=== PATIENT | male | born 1960 | race Caucasian/White ===

== ENCOUNTER 2019-04-11 08:19 | Outpatient (CLI) | payer BC, MEDICARE, SELFPAY ==
[2019-04-11 08:45] LABS: Basophils % 0.4 %; Eosinophils # 0.1 10^3/uL (0.0-0.8); Hematocrit 40.8 % (42.0-52.0); Hemoglobin 14.5 g/dL (11.7-16.6); Lymphocytes # 2.5 10^3/uL (0.8-4.8); Lymphocytes % 36.7 %; Mean Corpuscular HGB Conc 35.5 g/dL (30.0-36.0); Mean Corpuscular Hemoglobin 32.6 pg (28.0-34.0); Mean Corpuscular Volume 91.7 fL (80-94); Mean Platelet Volume 8.7 fL (7.4-10.4); Monocytes # 0.4 10^3/uL (0.2-0.9); Neutrophils # 3.7 10^3/uL (1.8-7.7); Neutrophils % 54.3 %; Nucleated Red Blood Cells % 0 %; Platelet Count 190 10^3/cmm (130-400); Red Blood Count 4.45 10^6/uL (4.1-5.3); Red Cell Distribution Width 12.2 % (12.1-15.1); White Blood Count 6.9 10^3/uL (4.0-10.0)
[2019-04-11 09:01] LABS: Alanine Aminotransferase 24 U/L (0-41); Albumin Level 5.5 g/dL (3.5-5.2); Alkaline Phosphatase 58 IU/L (40-130); Anion Gap 15.7 (5-19); Aspartate Amino Transferase 23 U/L (0-40); Blood Urea Nitrogen 15 mg/dL (6-20); Calcium 10.6 mg/Dl (8.6-10.0); Carbon Dioxide 24 mmol/L (22-29); Chloride 100 mmol/L (98-107); Gamma Glutamyl Transferase 31 U/L (61-); Globulin 1.4 g/dL (1.3-4.6); Glomerular Filtration Rate 57.1 mL/min (90-130); Glucose 123 mg/dL (74-109); Potassium 4.7 mmol/L (3.5-5.1); Sodium 135 mmol/L (136-145); Total Bilirubin 1.1 mg/dL (0.15-1.2); Total Protein 6.9 g/dL (6.6-8.7)
== END 2019-04-11 08:20 | disposition home or self-care (01) ==
LOC: LAB 08:24
PROVIDERS: Family Provider Nurse Practitioner Family; Visit Provider Internal Medicine Gastroenterology
DX: C22.0 Liver cell carcinoma (principal)
CPT/HCPCS: 80053; 80197; 82977; 85025

== ENCOUNTER 2019-07-23 12:28 | Outpatient (CLI) | payer BC, MEDICARE, SELFPAY ==
--- NOTE | 2019-07-23 | MR_ITS ---
WS: [id number] INDICATION: Liver transplant TECHNIQUE: MRI of the abdomen without and with gadolinium enhancement. Axial T2, coronal 2-D fiesta, dual Echo, axial 2-D fiesta, axial T1 fat sat, post gadolinium imaging was obtained. FINDINGS: Comparison CT April 05, 2014 Presumed interval liver transplant since 2013. Liver is normal in appearance. Normal portal vein and splenic vein. No intrahepatic biliary duct dilatation. Normal spleen. Pancreas is normal in appearanc e. Normal GE junction. Mild perinephric edema can be seen with renal insufficiency. Adrenal glands ar e normal. Upper abdominal aorta is normal. No abdominal lymphadenopathy. No enhancing lesions within the liver. Small left renal cyst measuring 7 mm. MR/MR abdomen wo/w con* [id number] IMPRESSION: 1. Transplant liver is normal in appearance. No intrahepatic biliary ductal di latation. 2. No suspicious enhancing hepatic lesions. 3. 7 mm left renal cyst. 4. Normal pancreas. No intrahepatic biliary ductal dilatation.
== END 2019-07-23 12:29 | disposition home or self-care (01) ==
PROVIDERS: Family Provider Nurse Practitioner Family; PCP Family Medicine; Visit Provider Internal Medicine Gastroenterology
DX: Z94.4 Liver transplant status (principal); Z85.05 Personal history of malignant neoplasm of liver; Q61.01 Congenital single renal cyst
CPT/HCPCS: 74183; A9579

== ENCOUNTER 2019-10-22 08:42 | Outpatient (CLI) | payer BC, MEDICARE, SELFPAY ==
[2019-10-22 09:34] LABS: Hematocrit 41.3 % (42.0-52.0); Hemoglobin 14.8 g/dL (11.7-16.6); Mean Corpuscular HGB Conc 35.8 g/dL (30.0-36.0); Mean Corpuscular Hemoglobin 33.2 pg (28.0-34.0); Mean Corpuscular Volume 92.6 fL (80-94); Mean Platelet Volume 8.5 fL (7.4-10.4); Platelet Count 207 10^3/cmm (130-400); Red Blood Count 4.46 10^6/uL (4.1-5.3); Red Cell Distribution Width 12.3 % (12.1-15.1); White Blood Count 6.6 10^3/uL (4.0-10.0)
[2019-10-22 09:45] LABS: Absolute Eosinophils 0.1 10^3/cmm (0.0-0.7); Absolute Neutrophil 3.9 10^3/cmm (1.4-6.5); Absolute Segmented Neutrophil 3.8 10/cmm (1.6-7.1); Band Neutrophils Absolute 0.1 10^3/cmm (0.0-1.2); Eosinophils 3 %; Lymphocytes 28 %; Lymphocytes Absolute 2.1 10^3/cmm (1.2-3.4); Monocytes Absolute 0.4 10^3/cmm (0.1-0.6); Platelet Estimate Normal (Normal); Segmented Neutrophils 57 %; Total Cells Counted 100 (0-100)
[2019-10-22 09:47] LABS: Alanine Aminotransferase 21 U/L (0-41); Albumin Level 4.5 g/dL (3.5-5.2); Alkaline Phosphatase 58 IU/L (40-130); Anion Gap 13.6 (5-19); Aspartate Amino Transferase 18 U/L (0-40); Blood Urea Nitrogen 20 mg/dL (6-20); Calcium 9.8 mg/dL (8.5-10.5); Carbon Dioxide 25 mmol/L (22-29); Chloride 101 mmol/L (98-107); Gamma Glutamyl Transferase 30 U/L (8-61); Globulin 2.8 g/dL (1.3-4.6); Glomerular Filtration Rate 56.9 mL/min (90-130); Glucose 115 mg/dL (65-115); Osmolality Calculated 277 mOsm/kg (285-295); Potassium 4.6 mmol/L (3.5-5.1); Sodium 135 mmol/L (136-145); Total Protein 7.3 g/dL (6.6-8.7)
== END 2019-10-22 08:43 | disposition home or self-care (01) ==
PROVIDERS: PCP Family Medicine; Visit Provider Internal Medicine Gastroenterology
DX: Z94.4 Liver transplant status (principal); Z79.899 Other long term (current) drug therapy
CPT/HCPCS: 80053; 80197; 82977; 85007; 85027

== ENCOUNTER 2020-07-22 07:24 | Outpatient (CLI) | payer BC, MEDICARE, SELFPAY ==
[2020-07-22 08:09] LABS: Basophils % 0.4 %; Eosinophils # 0.2 10^3/uL (0.0-0.8); Eosinophils % 3.1 %; Hematocrit 43.3 % (42.0-52.0); Hemoglobin 15.7 g/dL (11.7-16.6); Lymphocytes # 2.2 10^3/uL (0.8-4.8); Lymphocytes % 30.3 %; Mean Corpuscular HGB Conc 36.3 g/dL (30.0-36.0); Mean Corpuscular Hemoglobin 33.4 pg (28.0-34.0); Mean Corpuscular Volume 92.1 fL (80-94); Mean Platelet Volume 8.4 fL (7.4-10.4); Monocytes # 0.6 10^3/uL (0.2-0.9); Monocytes % 7.6 %; Neutrophils # 4.28 10^3/uL (1.8-7.7); Neutrophils % 58.5 %; Nucleated Red Blood Cells % 0 %; Platelet Count 205 10^3/cmm (130-400); White Blood Count 7.3 10^3/uL (4.0-10.0)
[2020-07-22 08:40] LABS: Alanine Aminotransferase 22 U/L (0-41); Albumin Level 4.5 g/dL (3.5-5.2); Alkaline Phosphatase 56 IU/L (40-130); Anion Gap 14.6 (5-19); Aspartate Amino Transferase 20 U/L (0-40); Blood Urea Nitrogen 19 mg/dL (6-20); Calcium 9.2 mg/dL (8.5-10.5); Carbon Dioxide 24 mmol/L (22-29); Chloride 97 mmol/L (98-107); Gamma Glutamyl Transferase 21 U/L (8-61); Globulin 2.4 g/dL (1.3-4.6); Glomerular Filtration Rate 76.7 mL/min (90-130); Glucose 117 mg/dL (65-115); Osmolality Calculated 275 mOsm/kg (285-295); Potassium 4.6 mmol/L (3.5-5.1); Sodium 131 mmol/L (136-145); Total Protein 6.9 g/dL (6.6-8.7)
== END 2020-07-22 07:25 | disposition home or self-care (01) ==
LOC: LAB 07:27
PROVIDERS: PCP Family Medicine; Visit Provider Internal Medicine Gastroenterology
DX: Z94.4 Liver transplant status (principal); Z79.899 Other long term (current) drug therapy
CPT/HCPCS: 36415; 80053; 80197; 82977; 85025

== ENCOUNTER 2020-08-06 09:10 | Outpatient (CLI) | payer BC, MEDICARE, SELFPAY ==
--- NOTE | 2020-08-06 09:30 | MR_ITS ---
WS: [id number] INDICATION: Liver transplant TECHNIQUE: MRI of the abdomen without and with gadolinium enhancement. Axial T2, coronal 2-D fiesta, dual Echo, axial 2-D fiesta, axial T1 fat sat, post gadolinium imaging was obtained. COMPARISON: Comparison CT April 05, 2014. MRI July 23, 2019 FINDINGS: Hepatic transplant. Transplant liver is normal in appearance. Normal portal vein and splenic vein. No intrahepatic biliary duct dilatation. Normal spleen. Pancreas is normal in appearance. No suspicious enhancing hepatic lesions. Normal GE junction. Mild perinephric edema can be seen with renal insufficiency similar to previous. Adrenal glands are normal. Upper abdominal aorta is normal. No abdominal lymphadenopathy. Small left renal cyst measuring 7 mm. Partially visualized lumbar fusion. MR/MR abdomen wo/w con* [id number] IMPRESSION: 1. Transplant liver is normal in appearance. 2. Portal vein and splenic vein are patent. No intrahepatic biliary ductal dil atation. 3. No suspicious enhancing hepatic lesions. 4. Small left renal cyst unchanged.
[2020-08-06] MEDS: gadobenate dimeglumine 20 mL vial IV (10:24)
== END 2020-08-06 09:11 | disposition home or self-care (01) ==
PROVIDERS: PCP Family Medicine; Visit Provider Internal Medicine Gastroenterology
DX: Z85.05 Personal history of malignant neoplasm of liver (principal); Z94.4 Liver transplant status; N28.1 Cyst of kidney, acquired
CPT/HCPCS: 74183; A9577

== ENCOUNTER 2021-10-11 08:38 | Outpatient (CLI) | payer BC, MEDICARE, SELFPAY ==
--- NOTE | 2021-10-11 08:49 | MR_ITS ---
WS: [id number] MRI ABDOMEN with and without CONTRAST. COMPARISON: 08/06/2020 Multiplanar, multisequence imaging is performed with and without contrast. ProHance 17 mL IV. No pleural effusions or ascites. Heart is normal size. Transplanted liver is normal size measuring approximately 13 cm in length. No significant fatty repla cement. The margins of the liver are smooth. No mass or intrahepatic duct dilatation. The portal vein is normally enhancing. No soft tissue masses identified. No lymph nodes in the carl hepatis. Postsurgical clips are noted near the carl hepatis and precaval. Mild perinephric stranding around each kidney. Nonenhancing 10 mm cyst mid LEFT kidney. Normal size s pleen. Negative pancreas. MR/MR abdomen wo/w con* [id number] IMPRESSION: 1. Normal appearance of the transplanted liver. No mass or bile duct dilatatio n. 2. Normal portal vein. 3. No ascites, pleural effusion or adenopathy. 4. Stable 10 mm LEFT renal cyst.
== END 2021-10-11 08:39 | disposition home or self-care (01) ==
PROVIDERS: PCP Family Medicine; Visit Provider Internal Medicine Gastroenterology
DX: Z94.4 Liver transplant status (principal); Z85.05 Personal history of malignant neoplasm of liver; Z79.899 Other long term (current) drug therapy
CPT/HCPCS: 74183

== ENCOUNTER 2021-10-12 08:01 | Outpatient (CLI) | payer BC, MEDICARE, SELFPAY ==
[2021-10-12 08:16] LABS: Basophils # 0.1 10^3/uL (0.0-0.1); Basophils % 0.6 %; Eosinophils # 0.2 10^3/uL (0.0-0.8); Hematocrit 43.3 % (42.0-52.0); Hemoglobin 15.8 g/dL (11.7-16.6); Lymphocytes # 2.4 10^3/uL (0.8-4.8); Lymphocytes % 29.7 %; Mean Corpuscular HGB Conc 36.5 g/dL (30.0-36.0); Mean Corpuscular Hemoglobin 32.7 pg (28.0-34.0); Mean Corpuscular Volume 89.6 fl (80-94); Mean Platelet Volume 8.3 fL (7.4-10.4); Monocytes # 0.5 10^3/uL (0.2-0.9); Monocytes % 5.7 %; Neutrophils # 4.92 10^3/uL (1.8-7.7); Neutrophils % 60.6 %; Nucleated Red Blood Cells % 0 %; Platelet Count 203 10^3/cmm (130-400); Red Blood Count 4.83 10^6/uL (4.1-5.3); Red Cell Distribution Width 12.1 % (12.1-15.1); White Blood Count 8.1 10^3/uL (4.0-10.0)
[2021-10-12 08:45] LABS: Alanine Aminotransferase 20 U/L (0-41); Albumin Level 4.2 g/dL (3.5-5.2); Alkaline Phosphatase 66 IU/L (40-130); Anion Gap 15.4 (5-19); Aspartate Amino Transferase 18 U/L (0-40); Blood Urea Nitrogen 12 mg/dL (6-20); Carbon Dioxide 23 mmol/L (22-29); Chloride 98 mmol/L (98-107); Globulin 2.6 g/dL (1.3-4.6); Glomerular Filtration Rate 68.5 mL/min (90-130); Glucose 152 mg/dL (65-115); Osmolality Calculated 277 mOsm/kg (285-295); Potassium 4.4 mmol/L (3.5-5.1); Sodium 132 mmol/L (136-145); Total Bilirubin 0.8 mg/dL (0.15-1.2); Total Protein 6.8 g/dL (6.6-8.7)
[2021-10-12 09:25] LABS: Gamma Glutamyl Transferase 23 U/L (8-61)
== END 2021-10-12 08:02 | disposition home or self-care (01) ==
PROVIDERS: PCP Family Medicine; Visit Provider Internal Medicine Gastroenterology
DX: Z94.4 Liver transplant status (principal); Z79.899 Other long term (current) drug therapy
CPT/HCPCS: 80053; 80197; 82977; 85025

== ENCOUNTER 2022-06-26 08:17 | Outpatient (CLI) | payer BC, MEDICARE, SELFPAY ==
--- NOTE | 2022-06-26 08:32 | MR_ITS ---
WS: [id number] MRI LUMBAR SPINE NONCONTRAST TECHNIQUE: Sagittal T1, T2 and STIR imaging. Axial T1 and T2 imaging. CLINICAL INFORMATION: LUMBAR RADICULOPATHY COMPARISON: MRI 2013] FINDINGS: Mild lumbar curve. No acute compression. Mild central canal stenosis T11-T12 with mild bilateral fora janeth narrowing unchanged from 2013. L1-L2: Mild disc osteophytic ridging. Mild central canal stenosis. Mild facet arthropathy. Moderate L EFT foraminal narrowing. L2-L3: Disc osteophyte complex with moderate central canal stenosis progressed compared to previous. .Mild facet arthropathy. Moderate RIGHT foraminal narrowing. L3-L4: Pedicle screw fixation with interbody fusion. Mild facet arthropathy. Spinal canal and foramen are patent. Laminectomy defects. This is new from previous. L4-L5: Disc osteophyte protrusion with severe central canal stenosis. This is progressed compared to previous. Prominent epidural fat contributes to stenosis. Moderate facet arthropathy. Slight impingem ent on traversing RIGHT L5 nerve root. Moderate RIGHT foraminal narrowing. L5-S1: Mild disc bulging with mild to moderate central canal stenosis. Advanced facet arthropathy wit h small facet effusions. Mild RIGHT foraminal narrowing. Visualized pelvic bony structures: Normal. Paravertebral soft tissues: Normal. MR/MR lumbar spine wo con* [id number] IMPRESSION: 1. Mild Lumbar curve. No acute compression. 2. Progressed moderate central canal stenosis L2-L3. Progressed severe stenosi s L4-L5 due to RIGHT pericentral disc bulging in combination with facet arthrop athy and prominent dorsal epidural fat. 3. Rjmr-dm-[id number] central canal stenosis L5-S1 progressed compared to previo us. 4. Laminectomy defects at L3-L4 new from previous. Spinal canal is patent at t his level. 5. Moderate RIGHT L2-L3 and moderate RIGHT L4-L5 foraminal narrowing. 6. Advanced facet arthropathy L5-S1 with small facet effusions. Mild RIGHT L5- S1 foraminal narrowing. Slight
== END 2022-06-26 08:18 | disposition home or self-care (01) ==
LOC: RAD 08:21
PROVIDERS: PCP Family Medicine; Visit Provider Family Medicine
DX: M54.16 Radiculopathy, lumbar region (principal); M48.061 Spinal stenosis, lumbar region without neurogenic claudication; M48.07 Spinal stenosis, lumbosacral region; M47.817 Spondylosis without myelopathy or radiculopathy, lumbosacral region
CPT/HCPCS: 72148

== ENCOUNTER → 2022-06-27 08:18 | Outpatient (BNVA) | payer BC, MEDICARE, SELFPAY | PROVIDERS: PCP Family Medicine; Referring Provider Family Medicine; Visit Provider Orthopaedic Surgery | DX: M25.78 Osteophyte, vertebrae (principal); Z96.89 Presence of other specified functional implants | CPT/HCPCS: 72110 ==

== ENCOUNTER 2022-07-14 08:34 | Day surgery (SDC) | payer BC, MEDICARE, SELFPAY ==
[2022-07-07 09:32] VITALS: BMI 35.4
--- NOTE | 2022-07-07 09:54 | ANES.PREANE2 ---
Pre-Anesthetic Assessment Height/Weight: Height 1.75 m Weight 108.862 kg Operation Date: 07/14/22 10:30 Proposed Procedures p Lumbar Spine Decompression:RT Side L4/5 L5/S1 [id number](Right) - Santos Fay, DO Familial anesthetic complications: None Social Tobacco and No alcohol Exam alert, oriented x 3, clear to auscultation bilaterally and regular rate & rhythm Airway Mallampati: Class III Dentition: other (no teeth) Pulmonary None reported CV/HEM Hypertension Hepatic Liver transplant d/t Liver cancer 5 years - takes prograff as anti-rejection med GI None reported Metabolic None reported Musc/skel Lower Back Pain Neuropsych None reported Anesthetic Plan ASA status: 3 Anesthesia: General Risk of > 500 ml blood loss (7ml/kg in children): No Medications/Allergies Home Medications Medication Instructions Recorded Confirmed Last Taken Type amlodipine 10 mg tablet 10 mg PO DAILY 06/27/22 07/07/22 07/07/22 History aspirin 81 mg capsule 81 mg PO DAILY 06/27/22 07/07/22 07/07/22 History atorvastatin 20 mg tablet 20 mg PO DAILY 06/27/22 07/07/22 07/07/22 History hydrochlorothiazide 25 mg tablet 25 mg PO DAILY 06/27/22 07/07/22 07/07/22 History hydrocodone 7.5 mg-acetaminophen 1 tab PO Q8H 07/07/22 07/07/22 07/07/22 History 325 mg tablet Allergies Allergy/AdvReac Type Severity Reaction Status Date / Time No Known Allergies Allergy Verified 07/07/22 09:29 Data Anesthesia 07/07/22 09:45 Cardiac Studies: No Data to Display
[2022-07-07 10:37] LABS: Anion Gap 17.6 (5-19); Blood Urea Nitrogen 13 mg/dL (8-23); Calcium 9.5 mg/dL (8.5-10.5); Carbon Dioxide 23 mmol/L (22-29); Chloride 96 mmol/L (98-107); Creatinine Clr Calc Pharmacy 95.5164; Glomerular Filtration Rate 76.2 mL/min (90-130); Glucose 93 mg/dL (65-115); Osmolality Calculated 274 mOsm/kg (285-295); Potassium 4.6 mmol/L (3.5-5.1); Sodium 132 mmol/L (136-145)
[2022-07-14] VITALS (7 sets, daily range): BP systolic 104–150; BP diastolic 71–99; PULSE 72–89; RESP 13–20; TEMP 36.1–36.9; O2SAT 95–98
[2022-07-14] MEDS: sodium chloride 0.9% 1,000 ML 30 ML IV (08:54)
--- NOTE | 2022-07-14 10:03 | PC.NURSE ---
Restroom- client up to restroom to void. family at bedside.
--- NOTE | 2022-07-14 10:24 | W.PM.OPSUD ---
Surgery/Procedure H&P Update DATE OF PROCEDURE: July 14, 2022 DATE H&P PERFORMED: 06/27/22 H&P UPDATE INFORMATION: I have reviewed H&P completed within last 30 days, I have examined patient prior to procedure and No changes to prior documentation PREOP DIAGNOSIS: Lumbar stenosis PLANNED PROCEDURE: Operation Date: 07/14/22 10:10 Proposed Procedures p Lumbar Spine Decompression:RT Side L4/5 L5/S1 [id number](Right) - Santos Fay DO
[2022-07-14] MEDS: midazolam 1 mg/mL INJ 2 mL 2 MG IVP (10:25)
--- NOTE | 2022-07-14 10:45 | P.ANESUD_ITS ---
Pre-Anesthetic Update Pre-Anesthetic Assessment: Date of Surgery/Procedure: 07/14/22 Preop Jennifer gnosis: Lumbar stenosis Proposed Procedure: Operation Date: 07/14/22 10:10 Proposed Procedures p Lumbar Spine Decompression:RT Side L4/5 L5/S1 [id number](Right) - Santos Fay, DO Any changes to Pre-Anesthetic Assessment?: No Last Intake: Intake Last Liquid Date 07/13/22 Last Liquid Time 21:00 Last Solid Date 07/13/22 Last Solid Time 21:00 Vitals: Temperature 98.4 F 07/14/22 08:49 Temperature Source Temporal Artery S can 07/14/22 08:49 Pulse Rate 89 07/14/22 08:49 Respiratory Rate 18 07/14/22 08:49 Blood Pressure 139/99 07/14/22 08:49 Blood Pressure Nayeli n 112 07/14/22 08:49 Pulse Oximetry 97 07/14/22 08:49 Oxygen Delivery Me thod 07/14/22 08:49 Cardiac Studies: No Data to Display
[2022-07-14] MEDS: ceFAZolin 2,000 MG in sodium chloride 0.9% (plus) 50 ML 100 MG IV (10:51)
[2022-07-14] MEDS: lidocaine-epi 1% 20 mL INJ INJECTION (11:56)
--- NOTE | 2022-07-14 12:40 | XR_ITS ---
WS: [id number] EXAMINATION: XR lumbar spine 1V [id number] REASON FOR EXAM: C-arm fluoroscopy COMPARISON: None available. ORDER DATE: 07/14/2022 12:41 PM FINDINGS: There has been prior lumbar fusion changes correlate with the previous study on 06/27/2022 surgical in strumentation superimposes the L5 vertebral body.. Total fluoroscopy time is 14.5 seconds XR/XR lumbar spine 1V [id number] IMPRESSION: Postoperative C-arm views.
--- NOTE | 2022-07-14 12:56 | P.OP_ITS ---
Operative Report Date of procedure: July 14, 2022 Pre-op diagnosis: Preop Diagnosis Lumbar stenosis with neurogenci claudication Post-op diagnosis: same Procedure done: 1. L4/5 laminectomy with partial facetectomy 2. L5/S1 lamiectomy with partial facetectomy Surgeon: Santos Fay Mason Tender Restoration Labor: none Estimated blood loss (mL): 20 Procedure: 1. L4/5 laminectomy with partial facetectomy 2. L5/S1 lamiectomy with partial facetectomy Patient is brought to the operative suite. After undergoing anesthesia they are placed in the prone position. All areas of impingement are well padded. Patient is then prepped and draped in the normal sterile fashion. A skin incision is made over the L4/5 level. This is confirmed under c-arm guidance. A series of dilators are passed and the tubular retractor is docked on the L4 lamina. A bovie is used to clear the soft tissue off the lamina and the L 4/5 facet joint. A high speed maría elena is then used to perform the laminectomy and take down the medial aspect of the L 4/5 facet joint. A kerrison rongeure was then used to take down the remaining lamina and smooth the edge of the laminectomy up to the point where the ligamentum flavum attaches. Attention was then brought to the medial aspect of the facet joint. The remaining medial aspect of the superior and inferior aspect of the facet joint were taken down with the kerrison from the pedicle of L4 to L 5. The facet joint had significant hypertrophy. Attention was then brought to the Ligamentum Flavum. The ligament was taken down from the lamina of L4 to L5 and out medially to the remaining facet joint. The ligament was thick. The dura was then exposed. The dura was in good repair. The L4 nerve was then traced with a curette out the L4/5 foramen and found to be adequately decompressed. The L5 nerve was traced with a curette around the L5 pedicle. The lateral recess was opened with a kerrison helping to further decompress the L5 nerve. Wound is then irrigated copiously with saline and surgiflo is used to stop any bleeding. The tubular retractor is removed and the A skin incision is made over the L5/S1 level. This is confirmed under c-arm guidance. A series of dilators are passed and the tubular retractor is docked on the L5 lamina. A bovie is used to clear the soft tissue off the lamina and the L 5/S1 facet joint. A high speed maría elena is then used to perform the laminectomy and take down the medial aspect of the L 5/S1 facet joint. A kerrison rongeure was then used to take down the remaining lamina and smooth the edge of the laminectomy up to the point where the ligamentum flavum attaches. Attention was then brought to the medial aspect of the facet joint. The remaining medial aspect of the superior and inferior aspect of the facet joint were taken down with the kerrison from the pedicle of L5 to S1. The facet joint had significant hypertrophy. Attention was then brought to the Ligamentum Flavum. The ligament was taken down from the lamina of L5 to s1 and out medially to the remaining facet joint. The ligament was scarred to dura. The dura was then exposed. The dura was in good repair. The L5 nerve was then traced with a curette out the L5/S1 foramen and found to be adequately decompressed. The S1 nerve was traced with a curette around the S1 pedicle. The lateral recess was opened with a kerrison helping to further decompress the S1 nerve. Wound is then irrigated copiously with saline and surgiflo is used to stop any bleeding. The tubular retractor is removed and the wound is closed with vicryl and monocryl suture. Glue is then used to protect the wound. A sterile dressing is then placed. Patient was then placed in the supine position and transferred to the PACU in stable condition.
[2022-07-14] MEDS: HYDROcodone-acetaminophen 10-325 mg Tablet 1 TAB PO (13:18)
== END 2022-07-14 13:35 | disposition home or self-care (01) ==
PROVIDERS: Anesthesiology; PCP Family Medicine; Visit Provider Orthopaedic Surgery
PROC: (CPT 63005; principal; 2022-07-14 10:00)
DX: M48.062 Spinal stenosis, lumbar region with neurogenic claudication (principal); I10 Essential (primary) hypertension; Z94.4 Liver transplant status; Z79.82 Long term (current) use of aspirin; Z79.891 Long term (current) use of opiate analgesic; F17.200 Nicotine dependence, unspecified, uncomplicated
CPT/HCPCS: 63047; 63048; 36415; 72020; 76000; 80048; J0690; J1100; J1170; J2250; J2405; J2704; J3010; J3490; J7030

== ENCOUNTER → 2022-07-27 08:21 | Outpatient (BNVA) | payer MEDICARE, BC, SELFPAY | PROVIDERS: PCP Family Medicine; Visit Provider Physician Assistant | DX: Z98.890 Other specified postprocedural states (principal); M48.062 Spinal stenosis, lumbar region with neurogenic claudication | CPT/HCPCS: 99024 ==

== ENCOUNTER → 2022-08-24 08:37 | Outpatient (BNVA) | payer MEDICARE, BC, SELFPAY | PROVIDERS: PCP Family Medicine; Visit Provider Orthopaedic Surgery | DX: Z47.89 Encounter for other orthopedic aftercare (principal) | CPT/HCPCS: 99024 ==

== ENCOUNTER → 2022-10-03 08:03 | Outpatient (BNVA) | payer MEDICARE, BC, SELFPAY | PROVIDERS: PCP Family Medicine; Visit Provider Orthopaedic Surgery | DX: Z98.890 Other specified postprocedural states (principal) | CPT/HCPCS: 99024 ==

== ENCOUNTER 2023-04-27 14:31 | Outpatient (CLI) | payer BC, MEDICARE, SELFPAY ==
--- NOTE | 2023-04-27 14:43 | MR_ITS ---
WS: [id number] MRI LUMBAR SPINE NONCONTRAST TECHNIQUE: Sagittal T1, T2 and STIR imaging. Axial T1 and T2 imaging. CLINICAL INFORMATION: LUMBAR RADICULOPATHY COMPARISON: MRI 06/26/2022 FINDINGS: Postoperative changes pedicle screw fixation L3-4 with interbody fusion graft at L3. New RIGHT hemila minectomy L4-5 and L5-S1. Previous LEFT hemilaminectomy L3-4. Shallow central protrusion at T11-T12 with mild central canal stenosis unchanged from previous. L1-L2: Disc space narrowing with mild disc bulging. Mild central canal stenosis. Moderate facet arthr opathy. LEFT foraminal protrusion with mild LEFT foraminal narrowing. RIGHT foramen is patent. L2-L3: Moderate central canal stenosis due to disc bulging with facet arthropathy and ligamentum flav um hypertrophy. Impingement on the subarticular recess bilaterally. RIGHT foraminal protrusion with m oderate RIGHT and mild LEFT foraminal narrowing. Central canal stenosis is stable. L3-L4: Pedicle screw fixation with interbody fusion graft. Spinal canal and foramen are patent. L4-L5: Disc bulging with mild to moderate residual narrowing of the thecal sac. . RIGHT hemilaminecto my is new from previous with improved central canal stenosis. Impingement on the RIGHT subarticular r ecess and traversing RIGHT L5 nerve root. Mild RIGHT and no significant LEFT foraminal narrowing. Mod erate facet arthropathy. L5-S1: Mild annular bulging. Moderate to advanced arthropathy with small facet effusions. Slight impi ngement on the LEFT S1 nerve root. Spinal canal is patent. Foramen are patent. Central canal stenosis at this level has improved with a RIGHT hemilaminectomy. Visualized pelvic bony structures: Normal. Paravertebral soft tissues: Normal. IMPRESSION: 1. Improved central canal stenosis L4-L5 and L5-S1 due to interval RIGHT hemilaminectomies. 2. Disc protrusion L4-5 impinges the RIGHT subarticular recess and traversing RIGHT L5 nerve root s imilar to previous. Mild to moderate residual narrowing of the thecal sac although improved compared to previous. 3. Moderate central canal stenosis L2-3 unchanged compared to previous. 4. RIGHT foraminal protrusion L2-3 impinges the exiting RIGHT L2 nerve root unchanged. 5. Mild RIGHT L4-5 foraminal narrowing. 6. Advanced facet arthropathy L5-S1 with small facet effusions. 7. Pedicle screw fixation L3-4 with interbody fusion graft. 8. Shallow central protrusion T11-T12 with mild central canal stenosis.
== END 2023-04-27 14:32 | disposition home or self-care (01) ==
LOC: RAD 14:32
PROVIDERS: PCP Family Medicine; Visit Provider Family Medicine
DX: M51.16 Intervertebral disc disorders with radiculopathy, lumbar region (principal); M48.07 Spinal stenosis, lumbosacral region; M47.817 Spondylosis without myelopathy or radiculopathy, lumbosacral region; Z98.1 Arthrodesis status; M51.24 Other intervertebral disc displacement, thoracic region; M48.04 Spinal stenosis, thoracic region
CPT/HCPCS: 72148

== ENCOUNTER 2024-11-27 07:03 | Emergency (ER) | payer BC, MEDICARE, SELFPAY ==
--- OUTSIDE RECORDS SUMMARY | 2024-02-02 04:00 | XMS_ITS ---
Author Organization [facility] Address [address] [place] [address] Support Name Relationship Address Phone Yolanda Kwan Emergency Contact [address] [place] [address] LESLIE KWAN Guarantor Unknown [phone] Care Team Providers Care Rooming House Inspector Name Role Phone Taurus Martinez MD Primary Care Provider Unavaila Francine Dye Unavailable [phone] Migration, Provider Unavailable Unavailable REASON FOR VISIT EMR-Donny Encounters Encounter Location Date Provider Diagnosis Migrated_Facility 0 0 02/02/2024 Provider Migration Plan Of Treatment Medication Medication Name Sig Start Date Stop Date Notes HYDROcodone-Acetaminop hen 7.5-325 MG Oral Tablet 1 Tablet Every 8 Hours PRN 06/29/2022 07/22/2022 *Reorder from [facility] an for eRx and Interaction Alerts* Progress Notes * LESLIE KWANDOB:1960 ( 64 yo M)Acc No.[id number]:02/02/2024 Patient: LESLIE CARROLL :1960 A ge:63 Y S ex:Male Address:[address] [place] [address] * Refills Stop HYDROcodone-Acetaminophen 7.5-325 MG Oral Tablet, 1 Tablet Every 8 Hours PRN Subjective: * Chief Complaints: * E MR-Donny * * Date:
--- OUTSIDE RECORDS SUMMARY | 2024-02-03 04:00 | XMS_ITS ---
Author Organization [facility] Address [address] [place] [address] Support Name Relationship Address Phone Yolanda Giron Emergency Contact [phone] [place] [address] AQUILESLESLIE BELTRAN Guarantor Unknown [phone] Care Team Providers Care Certified Teacher Assistant Name Role Phone Taurus Martinez MD Primary Care Provider Unavaila Francine Dye Unavailable [phone] Migration, Provider Unavailable Unavailable Allergies Allergen (clinical drug ingredient) Drug/Non Drug Allergy documented on EMR Reaction Allergy Type Onset Date Status lisinopril Lisinopril cough Drug Allergy Activ e REASON FOR VISIT EMR-Donny Medications Medication SIG (Take, Route, Frequency, Duration) Notes Start Date End Date Status Gabapentin *Pick strength-f orm from [facility] for eRX* Active Tylenol [facility] Active Social History Social History Additional Details Category Social Info Options Details Migrated Social History Migrated Social History Alcoholic beverages? - No, Currently on disability? - Yes, Drug or substance abuse? - No, Involved in any legal proceedings or lawsuits? - No, Marital Status - , Nonprescription drug use? - No, Participation in detoxification or rehabilitation - No, Working currently? - No Encounters Encounter Location Date Provider Diagnosis Migrated_Facility 0 0 02/03/2024 Provider Migration Plan Of Treatment No Information Progress Notes * AQUILESLESLIEDOB:1960 ( 64 yo M)Acc No.[id number]:02/03/2024 Patient: LESLIE CARROLL :1960 A ge:63 Y S ex:Male Address:[address] [place] [address] Subjective: * Chief Complaints: * E MR-Donny * Medical History: Cancer, H igh blood pressure, * Surgical History: Back surgery Since 2016 Liver transplant Since 2018 * Family History: M igrated Family History: : Heart disease, S troke. * Social History: M igrated Social History: M igrated Social History: Alcoholic beverages? - No, C urrently on disability? - Yes, D rug or substance abuse? - No, I nvolved in any legal proceedings or lawsuits? - No, M arital Status - , N onprescription drug use? - No, P articipation in detoxification or rehabilitation - No, W orking currently? - No. * Medications: T akingGabapentin , Notes to Pharmacist: *Pick strength-form from [facility] for eRX*Tylenol , Notes to Pharmacist: *Pick strength-form from [facility] for eRX*Taking Gabapentin , Notes to Pharmacist: *Pick strength-form from [facility] for eRX*Taking Tylenol , Notes to Pharmacist: *Pick strength-form from [facility] for eRX* * Allergies: L isinopril: cough - Allergy * * Date:
--- OUTSIDE RECORDS SUMMARY | 2024-11-27 07:10 | XMS_ITS | Encounter Summary ---
Author Organization [facility] Address [address] [place] [address] Care Team Providers Care Remittance Clerk Name Role Phone Brad Canales MD Primary Care Provider Encounter Details Date Type Department Care Team (Late st Contact Info) Description 07/13/2014 Nurse Triage Report [id number] ABSTRACTION Racheal Prajapati, RN Social History Tobacco Use Types Packs/Day Years Used Date Smoking Tobacco: Every Day Cigarettes Alcohol Use Standard Drinks/Week Comments Yes 0 (1 standard drink = 0.6 oz pur e alcohol) beer daily Sex and Gender Information Value Date Recorded Sex Assigned at Not on file 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 report feedback to Dr. Hanna ASSESSMENT TRIAGE NOTE Triage Note: Taping Foreman Racheal Prajpaati added this note on Jul 13 2014 5:19PM: [email or web address] TRIAGE/OUTCOME Guideline Title: Medication Questions - Adult Recommended Disposition: Provide Health Information Original Inclination: Self Management Override Disposition: Intended Action: Self Management Physician Contacted: No Caller has medication question(s) that was answered with available resources ? YES Physician Instructions: Care Advice: Safe Use of Medications: - Keep a list of your medications, listing both brand and generic names, the prescribed dosage, common side effects, recommended action for side effects, when to call their provider, and any other specific instructions. This medication list should be updated if any prescriptions change or if new medications are added. Your list should include nonprescription medications, vitamins and supplements. An online resource for a medication list is: http://www.ahrq.gov/patients-consumers/diagnosis-treatment/treatme nts/safeme ds/walletform.html or http://www.ahrq.gov/patients-consumers/diagnosis-treatment/treatme nts/safeme ds/yourmeds.pdf Ask about your medications interaction with other medications, supplements or foods. - Take the medication list to each provider visit, especially if seeing more than one doctor. Make note of any known allergies on this list. - Use your medication exactly as directed. Any concerns about side effects should be discussed with your pharmacist or prescribing provider before changing doses or stopping the medication. - Don't chew or crush tablets or open capsules unless told to do so. Some long-acting medications can be absorbed too quickly when chewed or crushed. Other medications either won't be effective or could cause side effects. - If you have difficulty swallowing pills, ask your provider or the pharmacist if the medication is available in liquid form. - For liquid medications, only use measuring device that came with it or was provided by the pharmacy. Household teaspoons and tablespoons can be inaccurate. - Never take anyone else's medication. documented in this encounter Plan of Treatment Not on file documented as of this encounter Visit Diagnoses Not on filedocumented in this encounter Care Teams Remittance Clerk Relationship Specialty Start Date End Date Brad Canales MD [address] [place] [id number] PCP - General Family Practice 05/14/14 documented as of this encounter
--- OUTSIDE RECORDS SUMMARY | 2024-11-27 07:11 | XMS_ITS ---
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 Moderate to severe inflammation/hepatitis with areas of necrosis. US liver 06/21 no tumors Alcoholism /alcohol abuse 08/07/2008 Overview (08/07/2008): 6-10 beers/day Chronic hepatitis C without hepatic coma GT 1a-resolved with treatment 08/07/2008 Overview (06/15/2016): 05/30/16Genotype 1a (09/15) Viekira/riba began 06/19/15 for 24 weeks HCV viral level detected (not quant) 07/18/1509/22 no virus 12/23 no virus End of therapy 11/2715 SVR 02/22 no virus 05/30/16 = no detectable HCV = SVR 24 Harvoni began 07/04/14 for planned 12 weeks-end of treatment viral load undetectable 10/07/14 SVR 12 after 01/21 recurrent virus-relapse Current Treatment and Therapy Plans No current plan information found. Past Treatment and Therapy Plans No past plan information found. Lifetime Dose Tracking * Chemical Lifetime Dose Automatic Entry Manual Entr y Effective Dose 7.5 mSv 7.5 mSv 0 mSv Total DLP 686 DLP 686 DLP 0 DLP CTDIvol Max 22.8 mGy 22.8 mGy 0 mGy CTDIvol Min 22.8 mGy 22.8 mGy 0 mGy
--- OUTSIDE RECORDS SUMMARY | 2024-11-27 07:12 | XMS_ITS | Encounter Summary ---
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
--- OUTSIDE RECORDS SUMMARY | 2024-11-27 07:12 | XMS_ITS | Clinical Summary ---
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 Family History Medical History Relation Name Comments Stroke Father High Cholesterol Mother Hypertension Mother Lung Cancer Other aunt Relation Name Status Comments Father Mother Other aunt Social History Tobacco Use Types Packs/Day Years Used Date Smoking Tobacco: Every Day Cigarettes Alcohol Use Standard Drinks/Week Comments Yes 0 (1 standard drink = 0.6 oz pur e alcohol) beer daily Sex and Gender Information Value Date Recorded Sex Assigned at Not on file 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 Gender Identity Not on file Sexual Orientation Not on file 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 Not on file Not on file Not on f ile Last Filed Vital Signs Vital Sign Reading Time Taken Comments Blood Pressure 171/83 05/30/2016 8:48 AM RIG MANAGER Pulse 79 05/30/2016 8:48 AM RIG MANAGER Temperature 37.3 C (99.2 F) 09/11/2008 11:02 AM CDT Respiratory Rate - - Oxygen Saturation 96% 05/30/2016 8:48 AM RIG MANAGER Inhaled Oxygen Concentration - - Weight 107 kg (236 lb) 05/30/2016 8:48 AM RIG MANAGER Height 175.3 cm (5' 9 ) 05/30/2016 8:48 AM RIG MANAGER Body Mass Index 34.85 05/30/2016 8:48 AM RIG MANAGER Plan of Treatment Health Maintenance Due Date Last Done Comments DTAP/TDAP/TD VACCINES (1 - Tdap) 1981 COLORECTAL SCREENING 2007 Colorectal Cancer Screening 2007 FIT-DNA Q 3 years 2007 FIT/FOBT Q 1 year 2007 Flex Sig/CT Colonography Q 5 years 2007 ZOSTER VACCINE (1 of 2) 2012 RSV VACCINE (60+ or ) (1 - Risk 60-74 years 1-dose series) 2022 INFLUENZA VACCINE (#1) 2024 Insurance [id number] [id number] [facility] MEDICARE PART A AND B Care Teams Instrumentation Fitter Relationship Specialty Start Date End Date Brad Canales MD [address] [place] [address] PCP - General Family Practice 05/14/14
--- OUTSIDE RECORDS SUMMARY | 2024-11-27 07:12 | XMS_ITS | Encounter Summary ---
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
--- OUTSIDE RECORDS SUMMARY | 2024-11-27 07:13 | XMS_ITS | Patient Health Record ---
Author Organization [facility] Address [address] [facility] [place] [address] Support Name Relationship Address Phone Yolanda Kwan Emergency Contact [address] [place] [address] LESLIE KWAN Guarantor Unknown [phone] Care Team Providers Care Perforator Operator Name Role Phone Taurus Martinez MD Primary Care Provider Francine Moreno Unavailable [phone] Migration, Provider Unavailable Unavailable Allergies Allergen (clinical drug ingredient) Drug/Non Drug Allergy documented on EMR Reaction Allergy Type Onset Date Status lisinopril Lisinopril cough Drug Allergy Activ e Reason For Referral No Information Medications Medication SIG (Take, Route, Frequency, Duration) Notes Start Date End Date Status amLODIPine Besylate 10 MG Tablet 1 tablet Orally once daily in evening for blood pressure; Duration: 90 days Active Aspirin 81 81 MG Tablet Delayed Release 1 tablet Orally Once a day Active Prograf 1 MG Capsule 1 capsule Orally twice daily Active Varenicline Tartrate 1 MG Tablet TAKE 1/2 TAB BY MOUTH DAILY X 3 DAYS THEN 1/2 TAB TWICE DAILY X 4 DAYS, THEN 1 TAB TWICE DAILY; Duration: 84 Active CoQ10 100 MG Capsule 1 capsule with a meal Orally Once a day Not-Taking Gabapentin *Pick strength-form from [employer] for eRX* Active Olmesartan Medoxomil 40 MG Tablet 1 tablet Orally Once a day; Duration: 90 days Active Carvedilol 6.25 MG Tablet 1 tablet with food Orally Twice a day; Duration: 90 days Active hydroCHLOROthiazide 25 MG Tablet 1 tablet in the morning Orally Once a day; Duration: 90 days Active Atorvastatin Calcium 20 MG Tablet 1 tablet Orally once daily at hs; Duration: 90 days Active Tylenol *Pick strength-form from [employer] for eRX* Active Social History Tobacco Use: Social History Observation Description Date Details (start date - stop date) Former Smoker NA - NA Social History Drugs/Alcohol: Social Info Question Answer Notes Alcohol Screen (Audit-C) Did you have a drink containing alcohol in the past year? No Points 0 Interpretation Negative Drugs Have you used drugs other than those for medical reasons in the past 12 months? No Caffeine Intake: 1-2 cups per day Tobacco Use: Social Info Question Answer Notes xTobacco Use/Smoking Are you a former smoker How long has it been since you last smoked? 3-6 months Additional Details Category Social Info Options Details Drugs/Alcohol: Do you smoke marijuana? De nies Migrated Social History Migrated Social History Alcoholic beverages? - No, Currently on disability? - Yes, Drug or substance abuse? - No, Involved in any legal proceedings or lawsuits? - No, Marital Status - , Nonprescription drug use? - No, Participation in detoxification or rehabilitation - No, Working currently? - No Problems Problem Type SNOMED Code ICD Code Onset Dates Problem Status W/U Status Risk Notes Problem Chronic pain (58753743) Other chronic pain (G89.29) Active confirmed Problem Sciatica (54600503) Lumbago with sciatica, left side (M54.42) Active confirmed Problem Essential hypertension (30697162) Essential hypertension (I10) Active confirmed Problem Neuropathy (258324602) Neuropathy (G62.9) Active confirmed Problem Hypercholesterolemia (63078122) Hypercholesterolemia (E78.00) Active confirmed Problem Displacement of lumbar intervertebral disc without myelopathy (21239450) Herniated nucleus pulposus, lumbar (M51.26) Active confirmed Problem Congenital anomaly o f spinal cord (64504535) 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) Active confirmed Problem Depression (067740498) Depression (311) 2016 Active confirmed [facility]-98 5911- Problem Tobacco user (749857637) Tobacco abuse affecting health (305.1) 2017 Active confirmed [id number]- Problem Depression (463225541) Depression (296.20) 2016 Active confirmed [facility]-98 5911- Problem Essential hypertension (21266982) Essential hypertension (401.1) 2016 Active confirmed [id number]- Problem Hepatoma (223494334) Hepatoma (155.0) 2016 Active confirmed [id number]- Problem Cough (02469898) Cough (786.2) 2016 Problem resolved confirmed [id number]- Problem Anemia (323401216) Anemia, unspe cified (285.9) 2017 Problem resolved confirmed [id number]- Problem Tobacco abuse (4618199240) Tobacco abuse (305.1) 2018 Problem resolved confirmed [id number]-[id number]- Problem Impaired fasting glycaemia (029314536) Elevated fasting glucose (790.21) 2017 Problem resolved confirmed [id number]- Problem Insomnia (940112014) Insomnia (307.41) 2016 Problem resolved confirmed [id number]- Problem Anxiety state (796844211) Situational stress with anxiety (300.09) 2016 Problem resolved confirmed [id number]- Problem Blood chemistry abnormal (528026037) Elevated blood iron concentration (790.6) 2017 Problem resolved confirmed [id number]- Problem Other cyst or ganglion (727.49) 2018 Problem resolved confirmed [facility]-98 5911- Problem Synovial cyst (131911747) Synovial cyst, NOS (727.40) 2016 Problem resolved confirmed [facility]-98 5911- Problem Edema (794772023) Peripheral ext remity edema (782.3) 2018 Problem resolved confirmed [id number]- Encounters Encounter Location Date Provider Diagnosis Migrated_Facility 0 0 02/02/2024 Provider Migration Migrated_Facility 0 0 02/03/2024 Provider Migration Plan Of Treatment Pending Test Test Name Order Date Prothrombin Time 83874 05/22/2023 ABORh 75706, 59230 05/22/2023 Antibody Screen 94893 05/22/2023 Basic Metabolic Panel (BMP) 65236 2023 CBC w\ Auto Diff 16110 05/22/2023 Partial Thromboplastin Time 49050 2023 Chest PA/Lat-78900 05/22/2023 Chest PA/Lat-53627 05/23/2023 XR Outside CD 06/27/2022 XR Outside CD 07/06/2023 XR Outside CD 11/16/2023 Electrocardiogram 12 Lead Tracing-03840 05/22/2023 BB ABORH-99933,14636 05/23/2023 zzzFluoroscopy 05/30/2023 zzzMRI Outside CD 04/27/2023 zzzMRI Outside CD 06/26/2022 IH Lumbosacral Spine AP/Lat - 28216 05/11 IH Lumbosacral Spine AP/Lat - 17458 05/11 Future Test Test Name Order Date Lumbosacral Spine AP/Lat-15766 4 Insurance Providers Payer Name Payer Address Payer Phone Subscriber Number Group Number Insured Name Patient Relationship to Insured Coverage Start Date Coverage End Date [place] [address] [place] [address] [phone] [id number] Yolanda Kwan Spouse - patient is the spouse of the insured [place] Medicare [address] [address] [place] [address] [id number] LESLIE KWAN Self - patient is the insured 6 Medical (General) History Medical History History ICD Code Hypertension GERD Gastritis Hepatic carcinoma Hep C Depression Osteoarthritis OTHER MEDICAL PROVIDERS Transplant doctor- Dr. Vila [phone] Surgical History Surgery Date(Month/Year) Lumbar spine fusion Liver transplant 07/2017 Back surgery Since 2015 Liver transplant Since 2017 Hospitalization History Reason Date(Month/Year) Liver transplant 07/17/2017
--- OUTSIDE RECORDS SUMMARY | 2024-11-27 07:13 | XMS_ITS | Encounter Summary ---
Author Organization [facility] Address [address] [place] [address] Care Team Providers Care Collator Name Role Phone Brad Canales MD Primary Care Provider Encounter Details Date Type Department Care Team (Late st Contact Info) Description 07/15/2003 Outpatient Historical [facility] Gastroenterology- [address] [phone] Monroe Castaneda MD [address] [phone] Social History Tobacco Use Types Packs/Day Years Used Date Smoking Tobacco: Never Assessed Sex and Gender Information Value Date Recorded Sex Assigned at Not on file 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
--- OUTSIDE RECORDS SUMMARY | 2024-11-27 07:13 | XMS_ITS ---
Author Organization [facility] Address [address] 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 Moderate to severe inflammation/hepatitis with areas of necrosis. 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 Past Treatment and Therapy Plans No past plan information found. Lifetime Dose Tracking * Chemical Lifetime Dose Automatic Entry Manual Entr y Effective Dose 7.5 mSv 0 mSv 7.5 mSv Total DLP 686 DLP 0 DLP 686 DLP CTDIvol Max 22.8 mGy 0 mGy 22.8 mGy CTDIvol Min 22.8 mGy 0 mGy 22.8 mGy
--- OUTSIDE RECORDS SUMMARY | 2024-11-27 07:13 | XMS_ITS | Clinical Summary ---
Author Organization [facility] Address [address] [place]: Epic Prelude ADT [place] [place] [address] Care Team Providers Care Process Line Operator Name Role Phone Brad Canales MD Primary Care Provider Allergies No known active allergies Active Problems Problem Noted Date Diagnosed Date [...] /alcohol abuse 08/07/2008 Overview (08/05/2020): 6-10 beers/day Family History Medical History Relation Name Comments Stroke Father High Cholesterol Mother Hypertension Mother Lung Cancer Other aunt Relation Name Status Comments Father Mother Other aunt Social History Tobacco Use Types Packs/Day Years Used Date Smoking Tobacco: Every Day Cigarettes Alcohol Use Standard Drinks/Week Comments Yes 0 (1 standard drink = 0.6 oz pur e alcohol) Sex and Gender Information Value Date Recorded Sex Assigned at Not on file Legal Sex Male 7:18 AM CLINICAL INSTRUCTOR Gender Identity Not on file Sexual Orientation Not on file Last Filed Vital Signs Vital Sign Reading Time Taken Comments Blood Pressure 171/83 05/30/2016 8:48 AM CLINICAL INSTRUCTOR Pulse 79 05/30/2016 8:48 AM CLINICAL INSTRUCTOR Temperature - - Respiratory Rate - - Oxygen Saturation - - Inhaled Oxygen Concentration - - Weight 107 kg (236 lb) 05/30/2016 8:48 AM CLINICAL INSTRUCTOR Height 175.3 cm (5' 9 ) 05/30/2016 8:48 AM CLINICAL INSTRUCTOR Body Mass Index 34.85 05/30/2016 8:48 AM CLINICAL INSTRUCTOR Plan of Treatment Health Maintenance Due Date Last Done Comments DTAP/TDAP/TD VACCINES (1 - Tdap) 1981 COLORECTAL SCREENING 2007 Colorectal Cancer Screening 2007 FIT-DNA Q 3 years 2007 FIT/FOBT Q 1 year 2007 Flex Sig/CT Colonography Q 5 years 2007 ZOSTER VACCINE (1 of 2) 2012 INFLUENZA VACCINE (#1) 2024 RSV VACCINE (60+ or ) (1 - 1-dose 75+ series) 2037 Care Teams Process Line Operator Relationship Specialty Start Date End Date Brad Canales MD [address] [place] [address] PCP - General Family Practice 05/14/14
[2024-11-27 07:24] VITALS: BP 178/94; PULSE 75; RESP 22; TEMP 36.7; O2SAT 96
[2024-11-27 08:16] LABS: Hematocrit 48.0 % (37-53); Hemoglobin 17.40 g/dL (11.27-16.99); Mean Corpuscular HGB Conc 36.3 g/dL (30-55); Mean Corpuscular Hemoglobin 33.6 pg (27-33); Mean Corpuscular Volume 92.7 fl (82-101); Nucleated Red Blood Cells % 0 %; Platelet Count 189 10^3/cmm (157-399); Red Blood Count 5.18 10^6/uL (3.85-5.65); White Blood Count 7.10 10^3/uL (3.29-11.43)
[2024-11-27 08:36] VITALS: BP 153/84; PULSE 71; O2SAT 95
--- NOTE | 2024-11-27 08:45 | W.ED.GENADLT ---
HPI - General Adult General: Chief complaint: Abdominal Pain Stated complaint: Lower R back Pain Time Seen by Provider: 11/27/24 07:05 History of Present Illness: 62-year-old male presents to the emergency room with complaints of right-sided flank pain radiating into his right mid back no history of trauma. He was seen 4 days ago at walk-in clinic told he likely had a kidney stone started on tamsulosin. He was told he was seen at that time but he did have some blood in his urine he has no history of nephrolithiasis. He has noticed that if he sits upright elevated back the pain is better if he moves or twists or lays flat the pain is worse. No fever sweats or chills he has been nauseous but no vomiting no hematochezia or melena he has had a few loose stools. Associated symptoms: Deny chest pain, dyspnea or rash Related Data Home Medications ?Medication ?Instructions ?Recorded ?Confirmed amlodipine 10 mg tablet 10 mg PO DAILY 06/27/22 10/03/22 aspirin 81 mg capsule 81 mg PO DAILY 06/27/22 10/03/22 atorvastatin 20 mg tablet 20 mg PO DAILY 06/27/22 10/03/22 hydrochlorothiazide 25 mg tablet 25 mg PO DAILY 06/27/22 10/03/22 hydrocodone 7.5 mg-acetaminophen 1 tab PO Q8H 07/07/22 10/03/22 325 mg tablet tacrolimus 1 mg capsule, 10 mg PO BID 07/14/22 10/03/22 immediate-release Previous Rx's ?Medication ?Instructions ?Recorded hydrocodone 7.5 mg-acetaminophen 1 - 2 tab PO Q4H PRN Post-op pain 08/03/22 325 mg tablet 5 days #40 tabs prednisone 20 mg tablet 20 mg PO TID #15 tabs 11/27/24 tizanidine 4 mg tablet 4 mg PO Q6H PRN muscle spasticity 11/27/24 #20 tabs Allergies Allergy/AdvReac Type Severity Reaction Status Date / Time No Known Allergies Allergy Verified 10/03/22 08:32 Review of Systems Const: Denies: fever(s) or chills Card: Denies: chest pain Resp: Denies: dyspnea GI: Denies: abdominal pain : Denies: dysuria, urinary frequency or urinary urgency Musc: Denies: neck pain or back pain Skin/Breast: Denies: rash Physical Exam Const: COMMON NORMALS: no acute distress GENERAL APPEARANCE: cooperative and comfortable ORIENTATION/CONSCIOUSNESS: Yes awake, Yes oriented to person, Yes oriented to place and Yes oriented to time HENMT: COMMON NORMALS: normocephalic, atraumatic and hearing grossly normal bilaterally HEAD & SCALP: normocephalic and atraumatic Resp: COMMON NORMALS: normal respiratory effort, No retractions, No use of accessory muscles and clear to auscultation bilaterally AUSCULTATION: clear to auscultation bilaterally Cardio: COMMON NORMALS: regular rate, regular rhythm and No murmurs present (Cardio) RATE: regular rate RHYTHM: regular rhythm GI: COMMON NORMALS: Soft to palpation and No hepatosplenomegaly present AUSCULTATION: Yes normoactive bowel sounds PALPATION: Yes Soft to palpation, No Tenderness to palpation present (GI), No Guarding due to palpation present (GI) and Yes No hepatosplenomegaly present Extremity: COMMON NORMALS: normal to inspection, capillary refill normal, no clubbing, cyanosis or edema, no calf tenderness and no pedal edema Neuro: SENSORIUM/ORIENTATION: Yes oriented to person, Yes oriented to place and Yes oriented to time Skin: COMMON NORMALS: no rashes or lesions noted GENERAL SKIN EXAM: no rashes or lesions noted Course Vital Signs: Vital signs: Vital Signs Temperature 98.0 F 11/27/24 07:24 Pulse Rate 71 11/27/24 10:54 Respiratory Rate 19 H 11/27/24 08:54 Blood Pressure 145/89 11/27/24 10:54 Pulse Oximetry 94 11/27/24 10:54 Oxygen Delivery Me thod Room Air 11/27/24 10:00 [facility] [place] - General Adult Medical Decision Making Labs and imaging reviewed. No leukocytosis CT is negative. Will discharge patient home with steroid taper. Tizanidine can use previously prescribed hydrocodone as well for pain follow-up with primary care Medical Records I reviewed the patient's medical records. Lab Data I reviewed the patient's lab results. 11/27/24 08:08 11/27/24 08:08 Radiology Impressions Abdomen/Pelvis CT 11/27/24 09:21 IMPRESSION: 1. Status post cholecystectomy. No intrahepatic duct dilatation. 2. Normal appendix. 3. Moderate bilateral perinephric stranding which has progressed since 2013. This can be seen with pyelonephritis or be chronic stranding. 4. No GI tract obstruction. 5. No ascites or adenopathy. 6. RIGHT renal vein is slightly more prominent than on the prior examination. The kidney is not enlarged. Consider evaluation of the RIGHT renal vein by ultrasound to exclude renal vein thrombosis. Notified Bro Ruiz DO at 11/27/2024 9:53 AM. Laboratory Results WBC 7.10 10^3/uL (3.29-11.43) 11/27/24 08:08 RBC 5.18 10^6/uL (3.85-5.65) 11/27/24 08:08 Hgb 17.40 g/dL (11.27-16.99) H 11/27/24 08:08 Hct 48.0 % (37-53) 11/27/24 08:08 MCV 92.7 fl (82-101) 11/27/24 08:08 MCH 33.6 pg (27-33) H 11/27/24 08:08 MCHC 36.3 g/dL (30-55) 11/27/24 08:08 RDW 12.6 % (12.1-15.1) 11/27/24 08:08 Plt Count 189 10^3/cmm (157-399) 11/27/24 08:08 MPV 7.8 fL (7.4-10.4) 11/27/24 08:08 Neut % (Auto) 64.6 % 11/27/24 08:08 Lymph % (Auto) 24.1 % 11/27/24 08:08 Jones % (Auto) 7.2 % 11/27/24 08:08 Eos % (Auto) 3.4 % 11/27/24 08:08 Baso % (Auto) 0.4 % 11/27/24 08:08 Neut # (Auto) 4.59 10^3/uL (1.8-7.7) 11/27/24 08:08 Lymph # (Auto) 1.7 10^3/uL (0.8-4.8) 11/27/24 08:08 Jones # (Auto) 0.5 10^3/uL (0.2-0.9) 11/27/24 08:08 Eos # (Auto) 0.2 10^3/uL (0.0-0.8) 11/27/24 08:08 Baso # (Auto) 0.0 10^3/uL (0.0-0.1) 11/27/24 08:08 Nucleated RBC % (auto) 0 % 11/27/24 08:08 Nucleated RBCs # 0.0 /100WBC 11/27/24 08:08 Sodium 131 mmol/L (136-145) L 11/27/24 08:08 Potassium 4.4 mmol/L (3.5-5.1) 11/27/24 08:08 Chloride 94 mmol/L (98-107) L 11/27/24 08:08 Carbon Dioxide 26 mmol/L (22-29) 11/27/24 08:08 Anion Gap 15.4 (5-19) 11/27/24 08:08 BUN 10 mg/dL (8-23) 11/27/24 08:08 Creatinine 1.1 mg/dL (0.7-1.2) 11/27/24 08:08 GFR Calculation 67.8 mL/min (90-130) L 11/27/24 08:08 Glucose 114 mg/dL (65-115) 11/27/24 08:08 Calculated Osmolality 272 mOsm/kg (285-295) L 11/27/24 08:08 Calcium 9.5 mg/dL (8.5-10.5) 11/27/24 08:08 Total Bilirubin 1.1 mg/dL (0.15-1.2) 11/27/24 08:08 AST 17 U/L (0-40) 11/27/24 08:08 ALT 19 U/L (0-41) 11/27/24 08:08 Alkaline Phosphatase 58 U/L (40-130) 11/27/24 08:08 Total Protein 6.9 g/dL (6.6-8.7) 11/27/24 08:08 Albumin 4.4 g/dL (3.5-5.2) 11/27/24 08:08 Globulin 2.5 g/dL (1.3-4.6) 11/27/24 08:08 Urine Color Yellow (Yellow) 11/27/24 08:30 Urine Appearance Clear (CLEAR) 11/27/24 08:30 Urine pH 6.5 (5-7) 11/27/24 08:30 Ur Specific [place] 1.017 (1.005-1.030) 11/27/24 08:30 Urine Protein Trace (Negative) A 11/27/24 08:30 Urine Glucose (UA) Negative (Normal) 11/27/24 08:30 Urine Ketones Trace (Negative) 11/27/24 08:30 Urine Blood Negative (Negative) 11/27/24 08:30 Urine Nitrate Negative (Negative) 11/27/24 08:30 Urine Bilirubin Negative (Negative) 11/27/24 08:30 Urine Urobilinogen 1.0 mg/dL (Negative) 11/27/24 08:30 Ur Leukocyte Esterase Negative (Negative) 11/27/24 08:30 Urine RBC 3-5 /hpf (0-2) 11/27/24 08:30 Urine WBC 0-5 /hpf (0-5) 11/27/24 08:30 Ur Squamous Epith Cells 0-5 /hpf (0-5) 11/27/24 08:30 Amorphous Sediment Not Reportable 11/27/24 08:30 Urine Bacteria None seen /hpf (NONE) 11/27/24 08:30 Hyaline Casts 4.52 /lpf 11/27/24 08:30 All radiology interpretation(s) finalized by discharge Discharge Plan Discharge Patient Disposition: Home Clinical Impression: Back pain Condition: Stable Prescriptions: New tizanidine 4 mg tablet 4 mg PO Q6H PRN (Reason: muscle spasticity) Qty: 20 0RF Rx Instructions: do not exceed 3 doses per 24 hrs prednisone 20 mg tablet 20 mg PO TID Qty: 15 0RF Rx Instructions: 1 p.o. 3 times daily x3 days, 1 p.o. twice daily x2 days, 1 p.o. daily x2 days No Action amlodipine 10 mg tablet 10 mg PO DAILY hydrochlorothiazide 25 mg tablet 25 mg PO DAILY atorvastatin 20 mg tablet 20 mg PO DAILY aspirin 81 mg capsule 81 mg PO DAILY hydrocodone-acetaminophen 7.5-325 mg tablet 1 - 2 tab PO Q4H PRN (Reason: Post-op pain) 5 Days Qty: 40 0RF hydrocodone-acetaminophen 7.5-325 mg Tablet 1 tab PO Q8H tacrolimus 1 mg capsule 10 mg PO BID Discharge Orders: Discharge ED (Routine); Ordered 11/27/24 Ordered By: Bro Ruiz Referrals: Taurus Martinez MD [Primary Care Provider, Family Practice] Discharge Diet: Usual diet Discharge Activity: Increase activity as tolerated Patient Instructions: Opioid Safety, Pain Management, Patient Portal & Ena Instructions Activity Restrictions/Additional Instructions: [facility] [place] [facility]. It is very important that you follow up as instructed or that you return to the Emergency Department should you have concerns or if your condition changes or worsens in any way. You were seen in the emergency room with complaints of low back pain. Urine did not show signs of infection your laboratory tests did not show any significant abnormalities CT showed a slight dilation of the renal vein but there is no other abnormalities your kidney function was normal. Suspect your pain is due to musculoskeletal back pain recommend you continue the pain meds your previously prescribed as well as a steroid taper at your given today and tizanidine to use as needed. Print Language: Haitian Coding Level of Care Code ED Bottle Feeder for Abner Rubio
[2024-11-27] MEDS: methylPREDNISolone sod succ 125 mg/2 mL INJ IVP (08:52)
[2024-11-27 08:54] VITALS: RESP 19; O2SAT 97
[2024-11-27] MEDS: morphine 4 mg/mL SDV 1 mL IVP (08:54)
[2024-11-27 09:02] LABS: Glucose Urine UA Negative (Normal); Nitrate Urine Negative (Negative); Specific Gravity, Urine 1.017 (1.005-1.030)
[2024-11-27 09:05] LABS: Add Urine Microscopic? YES
--- NOTE | 2024-11-27 09:21 | CT_ITS ---
WS: [id number] CT ABDOMEN AND PELVIS NONCONTRAST HISTORY: flank pain, right-sided, history of liver cancer with transplant. TECHNIQUE: Imaging performed through the abdomen and pelvis. Coronal and sagittal reformats are submitted. All CT scans at [facility] use at least one of these dose optimization techniques: automated exposure control; mA and/or kV adjustment per patient size (includes targeted exams where dose is matched to clinical indication); or iterative reconstruction. DLP: 1020.23 mGy.cm COMPARISON: 04/05/2014 Lower thorax: Lung bases are clear. Visualized heart is normal. Small hiatal hernia. Liver: Normal size liver. No mass or bile duct dilatation. Gallbladder: Absent. Pancreas: Normal size and attenuation. Normal pancreatic duct. No pancreatitis or mass. Spleen: Normal. Adrenal glands: Normal. No mass. Right kidney: Perinephric stranding with no obstruction. No calcification. The RIGHT renal vein is prominent and more so than on the prior study from 2013. Left kidney: Perinephric stranding with no obstruction. 13 mm low-attenuation mass in the central kidney. There is a nonobstructing calcification in the renal pelvis. Aorta: Mild atherosclerosis abdominal aorta with no aneurysm. No free fluid, intraperitoneal air or significant lymphadenopathy. GI tract: Normal noncontrast imaging of the stomach, small bowel and colon. No obstruction or wall thickening. Normal appendix. Abdominal wall: Fat-containing umbilical hernia. There is an additional supraumbilical hernia also containing fat. Pelvis: Well-distended urinary bladder. Prostate gland calcifications. Fat- containing bilateral inguinal canal hernias. Osseous structures: Advanced lumbar degenerative disc and facet disease. Posterior lumbar fusion from L3-L5. Interbody spacer at L3-4 and L4-5. CT/CT kidney stone [id number] IMPRESSION: 1. Status post cholecystectomy. No intrahepatic duct dilatation. 2. Normal appendix. 3. Moderate bilateral perinephric stranding which has progressed since 2013. T his can be seen with pyelonephritis or be chronic stranding. 4. No GI tract obstruction. 5. No ascites or adenopathy. 6. RIGHT renal vein is slightly more prominent than on the prior examination. The kidney is not enlarged. Consider evaluation of the RIGHT renal vein by ultr asound to exclude renal vein thrombosis. Notified Bro Ruiz DO at 11/27/2024 9:53 AM.
[2024-11-27 10:00] VITALS: BP 154/89; PULSE 66; O2SAT 94
[2024-11-27 10:29] LABS: Alanine Aminotransferase 19 U/L (0-41); Albumin Level 4.4 g/dL (3.5-5.2); Alkaline Phosphatase 58 U/L (40-130); Anion Gap 15.4 (5-19); Aspartate Amino Transferase 17 U/L (0-40); Blood Urea Nitrogen 10 mg/dL (8-23); Calcium 9.5 mg/dL (8.5-10.5); Carbon Dioxide 26 mmol/L (22-29); Chloride 94 mmol/L (98-107); Creatinine Clr Calc Pharmacy 83.5904; Globulin 2.5 g/dL (1.3-4.6); Glucose 114 mg/dL (65-115); Osmolality Calculated 272 mOsm/kg (285-295); Potassium 4.4 mmol/L (3.5-5.1); Sodium 131 mmol/L (136-145); Total Protein 6.9 g/dL (6.6-8.7)
[2024-11-27 10:54] VITALS: BP 145/89; PULSE 71; O2SAT 94
== END 2024-11-27 10:55 | disposition home or self-care (01) ==
PROVIDERS: Emergency Provider Family Medicine; PCP Family Medicine
DX: M54.9 Dorsalgia, unspecified (principal); Z79.82 Long term (current) use of aspirin
CPT/HCPCS: 36415; 74176; 80053; 81001; 85025; 96374; 96375; 99285; J1885; J2270; J2919